=== PATIENT | female | born 1965 | race Caucasian/White ===

== ENCOUNTER → 2017-05-24 | Outpatient (CLI) | payer BC ==
[2014-12-24 11:33] VITALS: BP 101/60
[~2017-05-24] MED LIST: HYDR-2165 PO; HYDR15SO4 PO; LANS15TA6 PO; SUCR1TAB35 PO; [UNRECOGNIZED DRUG - CODE] PO
--- NOTE | 2017-05-24 15:03 | KCIC ---
Chest radiograph 2 views May 24, 2017 CLINICAL INDICATION: Cough. COMPARISON: None. FINDINGS: Cardiac and mediastinal silhouettes are within normal limits. No pleural effusion, pneumothorax or focal consolidation. IMPRESSION: No acute cardiopulmonary abnormality. Electronically signed by: Fan Han MD (05/24/2017 3:00 PM) [id number]
== END | disposition home or self-care (01) ==
LOC: KCIC 14:19
PROVIDERS: ATTEND Internal Medicine Pulmonary Disease
DX: R05 Cough (principal)
CPT/HCPCS: 71020